=== PATIENT | female | born 1995 | race Caucasian/White ===

== ENCOUNTER 2017-03-21 10:29 | Day surgery (SDC) | payer OTHER ==
[~2017-03-21] VITALS: Ht 167.6 cm; Wt 153.0 kg
[2017-03-21 12:45] VITALS: Ht 167.6 cm; Wt 153.0 kg
[2017-03-21] MEDS ORDERED: BIRTH CONTROL PILLS (12:52)
[2017-03-21] MEDS ORDERED: PROPOFOL 40 ML ONE (12:58)
[2017-03-21] MEDS ORDERED: LIDOCAINE 2% (SDV) 5 ML INJ ONE (12:58)
[2017-03-21 13:06] VITALS: BP 136/63; PULSE 58; RESP 15
[2017-03-21 13:50] VITALS: BP 131/75; PULSE 60; RESP 12
--- NOTE | 2017-03-24 13:04 | GILP ---
DATE OF PROCEDURE: 03/21/2017 PREOPERATIVE DIAGNOSIS: Esophageal reflux symptoms. PROCEDURE: Esophagogastroduodenoscopy and biopsy. ANESTHESIA: Performed by Dr. Davenport as patient has sleep apnea and obesity. POSTOPERATIVE DIAGNOSIS: Distal esophagitis at G junction with no abnormality, few antral erosions. DESCRIPTION OF PROCEDURE: Patient was put in the left lateral decubitus after obtaining informed consent, Dr. Davenport gave the anesthesia, and very carefully advanced a olympus video panendoscope into the esophagus, stomach, and duodenum. Distal esophagitis at the GE junction with no abnormality noted, photography done, biopsy done. In the stomach including retroflexion and antegrade examination, fundus body unremarkable. In the antrum, a few erosions noted so random biopsy was done to rule out Helicobacter pylori. Duodenal bulb and 1st and 2nd part of the duodenum normal. The scope was slowly withdrawn re-examining in the upper gastrointestinal tract. No other major abnormalities noted PLAN: Await biopsy report, continue to advise her to lose body weight, and will consider after biopsy information the further therapies. Meanwhile, she will continue the PPI. Dictated By: Ramirez Celis MD /amira/jose /Document#: [id number] ; Dr. Thai MAGALLANES
== END 2017-03-21 15:36 | disposition home or self-care (01) ==
LOC: GIL 10:29
PROVIDERS: ATTEND Internal Medicine
DX: K21.0 Gastro-esophageal reflux disease with esophagitis (principal); K29.50 Unspecified chronic gastritis without bleeding; E66.01 Morbid (severe) obesity due to excess calories; Z68.43 Body mass index [BMI] 50.0-59.9, adult; G47.30 Sleep apnea, unspecified
CPT/HCPCS: 43239; 84703; 88305; 88312; 88313; Z7610